=== PATIENT | female | born 1975 | race Caucasian/White ===

== ENCOUNTER → 2017-12-31 | Outpatient (CLI) | payer OTHER ==
[2017-12-31 15:20] VITALS: BP 172/98; PULSE 92; TEMP 98.5; BMI 65.9
--- NOTE | 2018-01-17 22:05 | P.HPBAR ---
Bariatric H&P - History & Physicial H&P Date: 12/31/17 History & Physicial: Visit/CC: Patient initial contact: Initial weight: Initial weight in pounds: Height: Initial BMI: Last weight: Current weight: Current weight in pounds: Current BMI: [place] body weight (based on NIH guidelines): Excess body weight loss: The patient is a 42 year-old F who presents for Bariatric Assessment. DATE OF SERVICE: 12/31/2017 REASON FOR CONSULTATION: Initial bariatric evaluation HISTORY OF PRESENT ILLNESS: Renetta Ayers is a 42-year-old female who comes in with long-standing morbid obesity. Her highest weight was 3 years ago 487 pounds. She has undergone medical supervised weight loss and has lost 45 pounds. Today she comes in weighing 442 pounds. She is looking into the gastric bypass. For weight loss, she's tried weight loss pills, soups, TOPS. Most weight loss was over 80 pounds for which she regained. She reports regaining most weight after divorce. For pain management, she smokes marijuana and has a marijuana card. From her morbid obesity, she has developed hypertension including sleep apnea. She reports severe gastroesophageal reflux disease. She has a strong family history of morbid obesity in her mother including grandmother. She has family history of uterine cancer and lung cancer. She reports chronic diarrhea following gallbladder removal. Separately , she reports severe redness and pain from her pannus. She reports chronic back problems. Separately, she has hip pain, knee pain and bilateral ankle pain. She also has gout and diffuse osteoarthritis. At height of 5 feet 8.7 inches, her ideal body weight is 163 pounds. Her highest weight was 487 pounds. Today she comes when 442 pounds. Body mass index was 72.6 now down to 65.9. She has lost 45 pounds. She is 279 pounds overweight. PAST MEDICAL HISTORY: 1. Morbid obesity. 2. Body mass index of 72.6, initial. 3. Gastroesophageal reflux disease 4. Hypertensive heart disease 5. Osteoarthritis of the hip 6. Osteoarthritis of the back 7. Osteoarthritis of the knees 8. Anxiety 9. Chronic pain syndrome 10. Depressive disorder 11. Asthma 12. Chronic diarrhea 13. Diabetes type 2 14. Angina 15. Chronic obstructive pulmonary disease 16. Fibromyalgia 17. Gout 18. Carpal tunnel syndrome 19. Multiple sclerosis 20. Neuropathy PAST SURGICAL HISTORY: 1. Cholecystectomy 2. D&C 3. Toe surgery HOME MEDICATIONS: 1. Trazodone 2. Glucophage 3. Norvasc 4. Prilosec 5. Nystatin 6. Naproxen 7. Lopressor 8. Claritin 9. Lisinopril 10. Ativan 11. [place] 12. Neurontin 13. Lasix 14. Flonase 15. Lomotil 16. Cymbalta 17. Symbicort 18. Baclofen 19. Albuterol nebulizer 20. Abilify 21. Ventolin inhaler ALLERGIES: 1. Latex SOCIAL HISTORY: History of tobacco abuse. History of marijuana. FAMILY HISTORY: No family history of ulcerative colitis disease or Crohn's disease. Family history of morbid obesity. No lupus in the family. No reports of stomach or esophageal cancer. Family history of diabetes type 2. History of lung cancer and uterine cancer. REVIEW OF ORGAN SYSTEMS: CONSTITUTIONAL: At height of 5 feet 8.7 inches, her ideal body weight is 163 pounds. Her highest weight was 487 pounds. Today she comes when 442 pounds. Body mass index was 72.6 now down to 65.9. She has lost 45 pounds. She is 279 pounds overweight. HEENT: Denies any active troubles with vision or hearing. Has troubles with swallowing. ENDOCRINE: Has diabetes. Has hypothyroidism. CARDIOVASCULAR: Past heart attack. Has hypertension. RESPIRATORY: Has daytime somnolence. No asthma. Has obstructive sleep apnea. GI: Denies any bright red blood per rectum. No diarrhea or constipation. Has gastroesophageal reflux disease. MUSCULOSKELETAL: Has lower back pain and joint pain. Has osteoarthritis of the knees. NEURO: No headaches. No seizure disorders. PSYCH: Has depression. Has anxiety. No suicidal ideation. RHEUMATOLOGIC: No lupus. No rheumatoid arthritis. HEMATOLOGIC: Denies any abnormal bleeding or bruising. No personal history of DVTs. SKIN: No rash. No skin cancer. PHYSICAL EXAM: VITAL SIGNS: Height 5 foot 8.75 inches, weight 442 pounds. BMI 65.9. Vital Signs Temp 97.7 F 12/31/17 14:08 Pulse 67 12/31/17 14:08 Resp BP 131/81 12/31/17 14:08 Pulse Ox GENERAL: Well-developed in no acute distress. HEENT: No scleral icterus. Extraocular movements grossly intact. Hears conversational speech. No nasal drainage. NECK: Supple without lymphadenopathy. CHEST: Nonlabored respirations with equal bilateral excursions. CARDIOVASCULAR: Regular rate and regular rhythm. Distal 2+ pulses. ABDOMEN: Obese, soft, nontender, nondistended. MUSCULOSKELETAL: No clubbing, cyanosis. Gross strength 5/5 distal lower extremities. 2+ pre-tibial pitting edema. NEURO: No focal or lateralizing signs. Cranial nerves 2 through 12 grossly within normal limits. PSYCH: Appropriate affect. Alert and oriented to person, place and time. SKIN: Good skin turgor. Well perfused. ASSESSMENT: 1. Morbid obesity. 2. Body mass index of 72.6 to 65.9. 3. Gastroesophageal reflux disease 4. Hypertensive heart disease 5. Osteoarthritis of the hip 6. Osteoarthritis of the back 7. Osteoarthritis of the knees 8. Anxiety 9. Chronic pain syndrome 10. Depressive disorder 11. Asthma 12. Chronic diarrhea 13. Diabetes type 2 14. Angina 15. Chronic obstructive pulmonary disease 16. Fibromyalgia 17. Gout 18. Carpal tunnel syndrome 19. Multiple sclerosis 20. Neuropathy 21. Bilateral lower extremity edema PLAN: 1. Surgical options including a band, gastric bypass, sleeve gastrectomy were described in detail. Alternatives such as gastric balloon including duodenal switch were described. 2. The [place] bariat[facility] surgical collaborative data and outcomes calculator were described with surgical options. 3. Recommend a bariatric metabolic panel to evaluate for micro- including macronutrient deficiencies. 4. For history of daytime somnolence, recommend evaluation and treatment for sleep apnea. 5. Dietary surveillance and counseling was reviewed, I have asked increased protein intake to at least 80 grams daily. 6. Will need cardiac risk assessment. 7. Recommend medical risk assessment. 8. Psych assessment per insurance guidelines. 9. Follow up upon completion of upper endoscopy. 10. Recommend 12-lead EKG with family history of hypertensive heart disease. 11. Recommend upper endoscopy. 12. Recommend urine drug screen test 13. May benefit from evaluation with her artistic associate Thank you for this consultation. Past Medical History Past Medical History: Asthma, Chest Pain / Angina, COPD, Diabetes Mellitus, Fibromyalgia, Hypertension, Osteoarthritis (OA) Additional Past Medical History / Comment(s): Cellulitis of the left lower extremity, gout, carpal tunnel syndrome, hernia, morbid obesity with a BMI of 69 , neuropathy, beginning stages of MS History of Any Multi-Drug Resistant Organisms: None Reported Past Surgical History: Cholecystectomy Additional Past Surgical History / Comment(s): D&C,TOE SX X2 FOR INGROWN TOENAILS, 5 blood transfusion Past Anesthesia/Blood Transfusion Reactions: No Reported Reaction Additional Past Anesthesia/Blood Transfusion Reaction / Comm: Pt has had 5 transfusions in past Past Psychological History: Anxiety, Depression Smoking Status: Never smoker Past Alcohol Use History: None Reported Additional Past Alcohol Use History / Comment(s): Patient gives history that she has never smoked cigarettes. She does use marijuana on a regular basis. She rarely drinks alcohol. She is living at home with her boyfriend. There are dogs and cats in the home. Patient has been on disability for her obesity, fibromyalgia and depression. Past Drug Use History: Marijuana Additional Drug Use History / Comment(s): SMOKED LAT 1.5 WEEKS AGO - Past Family History Father Family Medical History: Diabetes Mellitus, Hyperlipidemia, Hypertension, Myocardial Infarction ([place]) Additional Family Medical History / Comment(s): IS IN HIS LATE 60s Mother Family Medical History: Cancer Additional Family Medical History / Comment(s): AT AGE 43 FROM UTERINE CA Bariatric Checklist Checklist: Plan: Checklist: EGD: 1. Hiatal hernia: 2. H. Pylori: HgbA1c: Vitamin D: Smoking: Never smoker Primary care physician referral: Psychiatry clearance: Cardiology clearance: Sleep study: Diet journal: VTE risk score: VTE risk level: Rehab needs at discharge:
== END | disposition home or self-care (01) ==
LOC: BARWHC3 09:54
PROVIDERS: ATTEND Surgery Plastic and Reconstructive Surgery
DX: E66.01 Morbid (severe) obesity due to excess calories (principal); K21.9 Gastro-esophageal reflux disease without esophagitis; I11.9 Hypertensive heart disease without heart failure; I50.9 Heart failure, unspecified; M16.0 Bilateral primary osteoarthritis of hip; M19.90 Unspecified osteoarthritis, unspecified site; M17.0 Bilateral primary osteoarthritis of knee; F41.9 Anxiety disorder, unspecified; G89.4 Chronic pain syndrome; F32.9 Major depressive disorder, single episode, unspecified; J45.909 Unspecified asthma, uncomplicated; K52.9 Noninfective gastroenteritis and colitis, unspecified; E11.9 Type 2 diabetes mellitus without complications; I20.9 Angina pectoris, unspecified; J44.9 Chronic obstructive pulmonary disease, unspecified; M79.7 Fibromyalgia; M10.9 Gout, unspecified; G56.00 Carpal tunnel syndrome, unspecified upper limb; G35 Multiple sclerosis; G62.9 Polyneuropathy, unspecified; R60.0 Localized edema; Z68.44 Body mass index [BMI] 60.0-69.9, adult; Z79.899 Other long term (current) drug therapy; Z79.891 Long term (current) use of opiate analgesic; Z79.1 Long term (current) use of non-steroidal anti-inflammatories (NSAID); Z79.84 Long term (current) use of oral hypoglycemic drugs; Z91.040 Latex allergy status; Z87.891 Personal history of nicotine dependence
CPT/HCPCS: 99211